=== PATIENT | male | born 1975 | race American Indian/Alaskan Native ===

== ENCOUNTER 2019-01-16 16:23 | Emergency (ER) | payer OTHER ==
--- NOTE | 2019-01-16 16:32 | Emergency Department Report ---
Chief Complaint: GI Bleed Stated Complaint: HERNIA ABD PAIN Time Seen by Provider: 01/16/19 16:31 - HPI History of Present Illness: PREVIOUS MESH HERNIA REPAIR PT STATES IT HAS POPPED AND HE HAS A NEW HERNIA CC ABD PAIN NAUSEA BLACK STOOLS PMH HEMORRHOIDS PSH HERNIA RX NONE CIG NONE ETOH SOCIAL MSE COMPLETED MSE screening note: Focused history and physical exam performed. Due to findings the following was ordered: ED Disposition for MSE Condition: Stable Forms: Accompanied Note
[2019-01-16 17:03] LABS: Mean Corpuscular HGB Conc 36 % (32-34); Mean Corpuscular Volume 97 fl (84-94); Platelet Count 252 K/mm3 (140-440); Red Cell Distribution Width 14.6 % (13.2-15.2)
[2019-01-16 17:13] LABS: Hematocrit 39.5 % (35.5-45.6); Hemoglobin 14.2 gm/dl (11.8-15.2)
[2019-01-16 17:24] LABS: Alanine Aminotransferase 13 units/L (7-56); Albumin 4.3 g/dL (3.9-5); BUN/Creatinine Ratio 9; Blood Urea Nitrogen 6 mg/dL (9-20); Calcium 8.7 mg/dL (8.4-10.2); Hemolysis Index 9
[2019-01-16] MEDS ORDERED: NACL 0.9% 1000 ML IV ONE (18:31)
[2019-01-16] MEDS ORDERED: MORPHINE IV ONE ×2 (18:31→19:29)
[2019-01-16] MEDS ORDERED: ZOFRAN IV ONE (18:32)
[2019-01-16] MEDS ORDERED: ZOFRAN ONE (18:36)
[2019-01-16] MEDS ORDERED: NACL 0.9% 1000 ML 1,000 ML IV ONE (19:29)
--- NOTE | 2019-01-16 19:38 | Emergency Department Report ---
ED Abdominal Pain HPI - General Chief Complaint: GI Bleed Stated Complaint: HERNIA ABD PAIN Time Seen by Provider: 01/16/19 16:31 Source: patient Mode of arrival: Ambulatory Limitations: No Limitations - History of Present Illness Initial Comments: 43-year-old -Tong[place] male presents to the emergency room complaining of abdominal pain 3 days. Patient states that he had a hernia repair in the past in 2013 he had 3 abdominal hernias which were all repaired on an emergency basis. Patient states in 2016 he had an inguinal hernia on the left side that was repaired in 2017. Patient now comes in feeling like he has another hernia around the umbilicus. Patient states that he has also been having black tarry stools for the last 3 days as well as vomitus has been dark. Patient does admit to having taken Advil for the last 2 days for pain management. Patient did not take any Pepto-Bismol. Patient has only a past medical history of hernias with surgical herniation 2013 2016. MD Complaint: abdominal pain -: days(s) (3) Location: periumbilical Radiation: none Severity: severe Severity scale (0 -10): 10 Quality: stabbing, sharp Consistency: constant Improves With: nothing Worsens With: vomiting Associated Symptoms: nausea, vomiting, melena - Related Data Previous Rx's Medication Instructions Recorded Last Taken Type Cetirizine HCl [ZyrTEC] 10 mg PO QAM 14 Days #14 capsule 11/14/18 Unknown Rx Fluticasone [Flonase] 1 spray NS QDAY 14 Days #1 bottle 11/14/18 Unknown Rx Ciprofloxacin HCl [Cipro] 500 mg PO QDAY #5 tablet 01/16/19 Unknown Rx Metoclopramide [Reglan] 10 mg PO TID #15 tab 01/16/19 Unknown Rx Potassium Chloride [Klor-Con M20] 40 meq PO QDAY 4 Days #8 tab.er.prt 01/16/19 Unknown Rx metroNIDAZOLE [Flagyl] 500 mg PO Q8HR #14 tablet 01/16/19 Unknown Rx Allergies Allergy/AdvReac Type Severity Reaction Status Date / Time No Known Allergies Allergy Unverified 11/14/18 05:31 ED Review of Systems ROS: Stated complaint: HERNIA ABD PAIN Other details as noted in HPI Constitutional: denies: chills, fever Eyes: denies: eye pain, eye discharge, vision change ENT: denies: ear pain, throat pain Respiratory: denies: cough, shortness of breath, wheezing Cardiovascular: denies: chest pain, palpitations Endocrine: no symptoms reported Gastrointestinal: abdominal pain, nausea, vomiting Genitourinary: denies: urgency, dysuria Musculoskeletal: denies: back pain, joint swelling, arthralgia Skin: denies: rash, lesions Neurological: denies: headache, weakness, paresthesias Psychiatric: denies: anxiety, depression ED Past Medical Hx - Past Medical History Previous Medical History?: Yes Additional medical history: Hernia - Surgical History Past Surgical History?: Yes Additional Surgical History: Abdominal Hernia 2013 - Social History Smoking Status: Never Smoker Substance Use Type: None - Medications Home Medications: Home Medications Medication Instructions Recorded Confirmed Last Taken Type Cetirizine HCl [ZyrTEC] 10 mg PO QAM 14 Days #14 capsule 11/14/18 Unknown Rx Fluticasone [Flonase] 1 spray NS QDAY 14 Days #1 bottle 11/14/18 Unknown Rx Ciprofloxacin HCl [Cipro] 500 mg PO QDAY #5 tablet 01/16/19 Unknown Rx Metoclopramide [Reglan] 10 mg PO TID #15 tab 01/16/19 Unknown Rx Potassium Chloride [Klor-Con M20] 40 meq PO QDAY 4 Days #8 tab.er.prt 01/16/19 Unknown Rx metroNIDAZOLE [Flagyl] 500 mg PO Q8HR #14 tablet 01/16/19 Unknown Rx ED Physical Exam - General Limitations: No Limitations General appearance: alert, in no apparent distress - Head Head exam: Present: atraumatic, normocephalic - Eye Eye exam: Present: normal appearance - ENT ENT exam: Present: mucous membranes moist - Neck Neck exam: Present: normal inspection - Respiratory Respiratory exam: Present: normal lung sounds bilaterally. Absent: respiratory distress - Cardiovascular Cardiovascular Exam: Present: regular rate, normal rhythm. Absent: systolic murmur, diastolic murmur, rubs, gallop - GI/Abdominal GI/Abdominal exam: Present: soft, tenderness, normal bowel sounds. Absent: distended - Rectal Rectal exam: Present: deferred - Extremities Exam Extremities exam: Present: normal inspection - Back Exam Back exam: Present: normal inspection - Neurological Exam Neurological exam: Present: alert, oriented X3 - Psychiatric Psychiatric exam: Present: normal affect, normal mood - Skin Skin exam: Present: warm, dry, intact, normal color. Absent: rash ED Course Vital Signs 01/16/19 16:31 Temperature 98.3 F Pulse Rate 86 Respiratory 20 Rate Blood Pressure 184/115 O2 Sat by Pulse 98 Oximetry ED Medical Decision Making - Lab Data Result diagrams: 01/16/19 16:51 01/16/19 16:51 - EKG Data Interpretation: normal EKG - Radiology Data Radiology results: report reviewed Patient: JAYLON NO MR#: [id number] : 1975 Acct:[id number] Age/Sex: 43 / M ADM Date: 01/16/19 Loc: ED Attending Dr: Ordering Physician: VEL BEASLEY Date of Service: 01/16/19 Procedure(s): CT abdomen pelvis wo con Accession Number(s): [id number] cc: VEL BEASLEY PROCEDURE: CT ABDOMEN PELVIS WO CON TECHNIQUE: Computerized axial tomography of the abdomen and pelvis was performed without intravenous contrast. This study is performed without intravascular contrast material and its sensitivity for abdominal and pelvic pathology, including neoplasms, inflammation, abscess, free fluid, thrombosis, arterial dissection and infarction, is reduced compared with a contrast enhanced study. CT DOSE LENGTH PRODUCT: 811.1 mGycm HISTORY: abd pain, tarry stools COMPARISONS: None . FINDINGS: Lower Lung ramsey: There is a small amount of dependent atelectasis. Lung bases otherwise are clear. Upper Abdomen: There is decreased density anteriorly in the left lobe of the liver adjacent to the right side of the falciform ligament which is a common area for focal fatty infiltration. The liver is otherwise unremarkable. The gallbladder showed no abnormalities. The adrenal glands, the unenhanced images of the pancreas and spleen are unremarkable. Possible small hiatal hernia. Stomach is otherwise unremarkable. Kidneys, Ureters and Urinary bladder: There is a nonobstructing 2 mm calculus in the upper third of the right kidney. No other renal calculi are seen. There is no hydronephrosis or ureteral calc neelam. No renal masses are seen. The urinary bladder is unremarkable. Retroperitoneum: Minimal atherosclerotic changes seen in the abdominal aorta. No aneurysm is visualized. Nonspecific subcentimeter lymph nodes are seen in the retroperitoneum. No pathologically enlarged lymph nodes are identified. Bowel: There is mild decreased density and mild prominence of the submucosal layer of the right side of the colon, the transverse colon and descending colon. I cannot exclude a mild nonspecific diffuse colitis. Bowel loops otherwise are unremarkable. No evidence of bowel obstruction ascites or free intraperitoneal gas. Normal-appearing appendix is seen in the right lower quadrant. There is a small to moderate-sized umbilical hernia containing adipose tissue. No herniated loops of bowel are seen. There is mild increased density in the adipose tissue adjacent to the hernia. No focal fluid collections or masses are seen. Reproductive organs: The prostate gland does not appear to be significantly enlarged. No acute bone abnormalities are seen. Impression: There is mild wall prominence and decreased density in the submucosal layer of the right side of the colon, transverse colon and descending colon. I cannot exclude a mild nonspecific diffuse colit is. Bowel loops otherwise are unremarkable. Focal fatty infiltration left lobe the liver suspected as described. Nonobstructing 2 mm calculus right kidney. Small to moderate-sized umbilical hernia containing adipose tissue present as described with a small amount of surrounding edema or fibrosis. No other abnormalities are identified. This document is electronically signed by Andrés Cabezas MD., January 16 2019 08:25:42 PM ET Transcribed By: DFN Dictated By: ANDRÉS CABEZAS MD Electronically Authenticated By: ANDRÉS CABEZAS MD Signed Date/Time: 01/16/192026 DD/ 02 TD/TT: 01/16/192002 Critical Care Time: Yes (30) Critical care attestation.: If time is entered above; I have spent that time in minutes in the direct care of this critically ill patient, excluding procedure time. ED Disposition Clinical Impression: Colitis, Hypokalemia, Abdominal hernia Disposition: DC-01 TO HOME OR SELFCARE Is pt being admited?: No Does the pt Need Aspirin: No Condition: Stable Additional Instructions: Please take medications as prescribed. I recommend she do follow up with a GI/gastroenterology specialist and she will need a colonoscopy to be evaluated for colon cancer. He need to follow up with surgery to have your hernias evaluated for possible surgery. He need to follow up with her primary care provider to have repeat labs since her potassium was 2.9 which is low. I encourage you to eat foods high in potassium such as cantaloupe, bananas, apricots, Kale, broccoli. Prescriptions: Ciprofloxacin HCl [Cipro] 500 mg PO QDAY #5 tablet metroNIDAZOLE [Flagyl] 500 mg PO Q8HR #14 tablet Potassium Chloride [Klor-Con M20] 40 meq PO QDAY 4 Days #8 tab.er.prt Metoclopramide [Reglan] 10 mg PO TID #15 tab [facility] [Primary Care Provider] - 3-5 Days [facility] [Provider Group] - 3-5 Days [facility] [Provider Group] - 3-5 Days VERA LIND MD [Staff Physician] - 3-5 Days JOSE DUNLAP MD [Staff Physician] - 3-5 Days Forms: Accompanied Note
--- NOTE | 2019-01-16 20:27 | Cat Scan Report ---
PROCEDURE: CT ABDOMEN PELVIS WO CON TECHNIQUE: Computerized axial tomography of the abdomen and pelvis was performed without intravenous contrast. This study is performed without intravascular contrast material and its sensitivity for ab dominal and pelvic pathology, including neoplasms, inflammation, abscess, free fluid, thrombosis, art erial dissection and infarction, is reduced compared with a contrast enhanced study. CT DOSE LENGTH PRODUCT: 811.1 mGycm HISTORY: abd pain, tarry stools COMPARISONS: None . FINDINGS: Lower Lung ramsey: There is a small amount of dependent atelectasis. Lung bases otherwise are clear. Upper Abdomen: There is decreased density anteriorly in the left lobe of the liver adjacent to the r ight side of the falciform ligament which is a common area for focal fatty infiltration. The liver is otherwise unremarkable. The gallbladder showed no abnormalities. The adrenal glands, the unenhanced images of the pancreas and spleen are unremarkable. Possible small hiatal hernia. Stomach is otherwis e unremarkable. Kidneys, Ureters and Urinary bladder: There is a nonobstructing 2 mm calculus in the upper third of the right kidney. No other renal calculi are seen. There is no hydronephrosis or ureteral calculi. No renal masses are seen. The urinary bladder is unremarkable. Retroperitoneum: Minimal atherosclerotic changes seen in the abdominal aorta. No aneurysm is visualiz ed. Nonspecific subcentimeter lymph nodes are seen in the retroperitoneum. No pathologically enlarged ly mph nodes are identified. Bowel: There is mild decreased density and mild prominence of the submucosal layer of the right side of the colon, the transverse colon and descending colon. I cannot exclude a mild nonspecific diffuse colitis. Bowel loops otherwise are unremarkable. No evidence of bowel obstruction ascites or free in traperitoneal gas. Normal-appearing appendix is seen in the right lower quadrant. There is a small to moderate-sized umbilical hernia containing adipose tissue. No herniated loops of bowel are seen. There is mild increased density in the adipose tissue adjacent to the hernia. No foca l fluid collections or masses are seen. Reproductive organs: The prostate gland does not appear to be significantly enlarged. No acute bone abnormalities are seen. Impression: There is mild wall prominence and decreased density in the submucosal layer of the right side of the colon, transverse colon and descending colon. I cannot exclude a mild nonspecific diffuse colitis. Sunday wel loops otherwise are unremarkable. Focal fatty infiltration left lobe the liver suspected as described. Nonobstructing 2 mm calculus right kidney. Small to moderate-sized umbilical hernia containing adipose tissue present as described with a small amount of surrounding edema or fibrosis. No other abnormalities are identified. This document is electronically signed by Andrés Wells MD., January 16 2019 08:25:42 PM ET
[2019-01-16] MEDS ORDERED: K-DUR PO ONE (20:44)
[2019-01-16] MEDS ORDERED: MAG-OX PO ONE (23:24)
[2019-01-16] MEDS ORDERED: MAGNESIUM SULFATE 2GM/50ML 2 GM/50 ML BAG IV ONE (23:36)
[2019-01-17] MEDS ORDERED: DILAUDID IV ONE (00:05)
[2019-01-17 02:07] VITALS: BP 159/104
== END 2019-01-17 01:40 | disposition home or self-care (01) ==
LOC: ED 16:23
DX: K52.9 Noninfective gastroenteritis and colitis, unspecified (principal); E87.6 Hypokalemia; K46.9 Unspecified abdominal hernia without obstruction or gangrene
CPT/HCPCS: 36415; 74176; 80053; 83735; 85027; 93005; 93010; 96361; 96365; 96375; 96376; 99284; J1170; J2270; J2405; J3475; J7030

== ENCOUNTER → 2020-01-16 11:24 | Emergency (ER) | payer SELFPAY | END | disposition left against medical advice (07) | LOC: ED 11:24 | DX: J02.9 Acute pharyngitis, unspecified (principal); Z53.21 Procedure and treatment not carried out due to patient leaving prior to being seen by health care provider ==